=== PATIENT | female | born 1995 | race Caucasian/White ===

== ENCOUNTER 2019-01-21 17:13 | Emergency (ER) | payer BC ==
[~2019-01-21] VITALS: Ht 172.7 cm; Wt 117.7 kg
[2019-01-21 17:35] VITALS: Ht 172.7 cm; Wt 117.7 kg
--- NOTE | 2019-01-21 21:06 | ERD ---
ER Documentation Chief Complaint Chief Complaint left upper back pain worse after eating solid foods, x1wk HPI 24-year-old female presents with complaint of left upper back pain which is worse after she eats solid foods. States this pain is been going on for 1 week. She also states that she has prediabetes. States that she has a brother who early of heart attack at age 22. Denies any history of trauma. Denies any treatments. Denies chest pain, shortness of breath, abdominal pain, nausea, vomiting, fevers. Denies hemoptysis, recent immobility, history of surgeries or malignancy, dyspnea. Medical history of prediabetes. Denies medications. ROS All systems reviewed and are negative except as per history of present illness. Medications Home Meds Active Scripts Famotidine* (Pepcid*) 20 Mg Tablet, 20 MG PO BID for GERD for 14 Days, TAB Prov:RAMONA LOZADA 01/21/19 Allergies Allergies: Coded Allergies: No Known Allergy (Unverified , 01/21/19) PMhx/Soc Medical and Surgical Hx: pt denies Medical Hx History of Surgery: Yes (hernia repair at age 5) Hx Miscellaneous Medical Probl: Yes (pre-diabetic) Hx Alcohol Use: No Hx Substance Use: No Hx Tobacco Use: No Smoking Status: Never smoker FmHx Family History: No diabetes, No coronary disease, No other Physical Exam Vitals Vital Signs Date Temp Pulse Resp B/P (MAP) Pulse Ox O2 O2 Flow FiO2 Time Delivery Rate 01/21/19 98.9 85 18 120/72 97 Room Air 22:05 (88) 01/21/19 99.6 89 18 135/87 99 17:35 (103) Physical Exam Const: No acute distress Head: Atraumatic Eyes: Normal Conjunctiva ENT: Normal External Ears, Nose and Mouth. Neck: Full range of motion. No meningismus. Resp: Clear to auscultation bilaterally Cardio: Regular rate and rhythm, no murmurs Abd: Soft, non tender, non distended. Normal bowel sounds Skin: No petechiae or rashes Back: No midline or flank tenderness Ext: No cyanosis, or edema Neur: Awake and alert Psych: Normal Mood and Affect Result Diagram: 01/21/19 2100 01/21/19 2100 Results 24 hrs Laboratory Tests Test 01/21/19 20:45 01/21/19 21:00 POC Beta HCG, Qualitative NEGATIVE White Blood Count 8.6 10^3/ul Red Blood Count 4.81 10^6/ul Hemoglobin 12.4 g/dl Hematocrit 38.6 % Mean Corpuscular Volume 80.2 fl Mean Corpuscular Hemoglobin 25.8 pg Mean Corpuscular Hemoglobin Concent 32.1 g/dl Red Cell Distribution Width 15.4 % Platelet Count 280 10^3/UL Mean Platelet Volume 10.6 fl Immature Granulocytes % 0.300 % Neutrophils % 50.7 % Lymphocytes % 41.2 % Monocytes % 6.3 % Eosinophils % 0.9 % Basophils % 0.6 % Nucleated Red Blood Cells % 0.0 /100WBC Immature Granulocytes # 0.030 10^3/ul Neutrophils # 4.4 10^3/ul Lymphocytes # 3.5 10^3/ul Monocytes # 0.5 10^3/ul Eosinophils # 0.1 10^3/ul Basophils # 0.1 10^3/ul Nucleated Red Blood Cells # 0.0 10^3/ul Urine Color YELLOW Urine Clarity SLIGHTLY CLOUDY Urine pH 6.0 Urine Specific [place] 1.005 Urine Ketones 1+ mg/dL Urine Nitrite NEGATIVE mg/dL Urine Bilirubin NEGATIVE mg/dL Urine Urobilinogen NEGATIVE mg/dL Urine Leukocyte Esterase 2+ Yash/ul Urine Microscopic RBC 2 /HPF Urine Microscopic WBC 2 /HPF Urine Squamous Epithelial Cells FEW /HPF Urine Amorphous Crystals FEW /HPF Urine Bacteria FEW /HPF Urine Hemoglobin 2+ mg/dL Urine Glucose NEGATIVE mg/dL Urine Total Protein NEGATIVE mg/dl Sodium Level 142 mmol/L Potassium Level 3.5 mmol/L Chloride Level 103 mmol/L Carbon Dioxide Level 26 mmol/L Anion Gap 13 Blood Urea Nitrogen 6 mg/dl Creatinine 0.59 mg/dl Est Glomerular Filtrat Rate mL/min > 60 mL/min Glucose Level 102 mg/dl Calcium Level 9.7 mg/dl Total Bilirubin 0.3 mg/dl Direct Bilirubin 0.00 mg/dl Indirect Bilirubin 0.3 mg/dl Aspartate Amino Transf (AST/SGOT) 71 IU/L Alanine Aminotransferase (ALT/SGPT) 86 IU/L Alkaline Phosphatase 81 IU/L Troponin I < 0.012 ng/ml Total Protein 7.8 g/dl Albumin 4.5 g/dl Globulin 3.30 g/dl Albumin/Globulin Ratio 1.36 Lipase 66 U/L Procedures/MDM DIAGNOSTIC IMAGING REPORT Patient: KAREEM SANCHEZ : 1995 Age: 24 Sex: F MR #: [id number] [facility] #: [id number] DOS: 01/21/192033 Ordering MD: RAMONA LOZADA Location: [facility] Room/Bed: PROCEDURE: XR Chest. CLINICAL INDICATION: anterior chest wall pain TECHNIQUE: Single frontal view of the chest COMPARISON: None FINDINGS: No focal pulmonary consolidation. The heart and mediastinum are within normal limits. There is no pleural effusion or pneumothorax. Bones and soft tissues are unremarkable. IMPRESSION: No acute cardiac or pulmonary findings. RPTAT:HCLE adrienne Clay Physician Date Time Electronically viewed and signed by adrienne Clay Physician on 01/21/2019 21:43 cE/ CC: RAMONA LOZADA [id number] EKG: Rate/Rhythm: Normal Sinus Rhythm QRS, ST, T-waves: No changes consistent w/ acute ischemia Impression: No evidence of ischemia or arrhythmia MDM: I have low suspicition for acute coronary syndrome, pulmonary embolism, aortic dissection, AAA, pneumothorax, esophageal rupture, pericarditis, myocarditis, or pneumonia based on EKG, imaging, labs, patient history and exam. Patient discharged with strict ER precautions. Patient advised to follow up with PMD. All questions answered at discharge. In addition patient is not meet [place] or PERC criteria for d-dimer. Because the pain only occurs when she eats, patient possibly suffering from GERD or esophageal stricture. Patient advised to follow-up primary care for referral to gastroenterology. Patient given trial of Pepcid to see if resolves her symptoms. I will suspicion for pulmonary embolism, AAA, pancreatitis, myocardial infarction, vertebral abscess, spinal fracture, pyelonephritis, or any other emergent condition. Patient discharged with strict ER precautions. Patient advised to follow up with PMD. All questions answered at discharge. Departure Diagnosis: Primary Impression: Back pain Back pain location: thoracic back pain Chronicity: acute Back pain laterality: left Qualified Codes: M54.6 - Pain in thoracic spine Condition: Stable RAMONA LOZADA Jan 21, 2019 21:06
[2019-01-21] MEDS ORDERED: FAMO-96 PO (21:51)
[2019-01-21 22:05] VITALS: BP 120/72; PULSE 85; RESP 18
== END 2019-01-21 22:06 | disposition home or self-care (01) ==
LOC: FTE 17:13
DX: M54.6 Pain in thoracic spine (principal)
CPT/HCPCS: 36415; 71045; 80053; 81001; 81025; 83690; 84484; 85025; 93005